=== PATIENT | male | born 1960 | race African-American/Black ===

== ENCOUNTER 2021-10-27 09:39 | Emergency (ER) | payer BC ==
[~2021-10-27] VITALS: Ht 188 cm; Wt 81.0 kg
[2021-10-27 09:43] VITALS: BP 172/78
== END 2021-10-27 14:44 | disposition left against medical advice (07) ==
LOC: ER 09:55
DX: Z53.21 Procedure and treatment not carried out due to patient leaving prior to being seen by health care provider (principal)